=== PATIENT | female | born 1940 | race Caucasian/White ===

== ENCOUNTER 2024-05-20 11:59 | Emergency (ER) | payer OTHER ==
[2024-05-20 12:23] VITALS: PULSE 86; TEMP 98.5; O2SAT 95
--- NOTE | 2024-05-20 12:48 | ERPHSYRPT ---
- History of Present Illness Source: patient Exam Limitations: no limitations Patient Subjective Stated Complaint: cough for 2 weeks Triage Nursing Assessment: Pt brought to the ER by a friend, hypertensive, denies pain, pulses normal, skin n/c/d, no difficulty breathing, reports white thick sputum for 2 weeks, has been feeling dizzy but has not been taking in much liquids, lungs clear Physician History: Patient's had coughFor about 2 weeks. She has had on and off fever and chills and malaise. She is in no distress. She has a productive cough it has been white sputum. She says she thought it was the flu. She is also had some positional vertigo. It goes away with rest. She does not have any ataxia. She has no focal neurological deficits It gets worse with movement and she can find positions that make it go away. Her main issue is the cough. She is not dyspneic at rest but says she gets a little bit dyspneic well with exertion. She has no other complaints at this time. Allergies/Adverse Reactions: lisinopril Allergy (Verified 05/20/24 12:24) morphine Allergy (Verified 05/20/24 12:24) simvastatin Allergy (Verified 05/20/24 12:24) sulfamethoxazole [From Janra] Allergy (Verified 05/20/24 12:24) trimethoprim [From Janra] Allergy (Verified 05/20/24 12:24) Home Medications: Amlodipine Besylate 10 mg PO DAILY 05/20/24 [History] Aspirin 81 mg PO DAILY 05/20/24 [History] Atorvastatin Calcium 40 mg PO DAILY 05/20/24 [History] Hctz/Triamteren 37.5 mg/25 mg* [Maxzide-25MG Tablet] 0.5 tab PO DAILY 05/20/24 [History] Losartan Potassium 12.5 mg PO DAILY 05/20/24 [History] Metformin HCl 500 mg [Glucophage 500 MG] 500 mg PO DAILY 05/20/24 [Histor y] Metoprolol Tartrate 50 mg [Lopressor 50 MG] 50 mg PO BID 05/20/24 [History] Hx Influenza Vaccination/Date Given: No Hx Pneumococcal Vaccination/Date Given: No Travel Risk - International Travel Have you traveled outside of the country in past 3 weeks: No - Emerging Infectious Disease Are you exhibiting symptoms associated with any current EIDs: No - Review of Systems Constitutional: Chills, Fatigue, Malaise Eyes: No Symptoms Respiratory: Cough, No Stridor, No Wheezing Cardiac: No Symptoms, No Chest Pain, No Edema, No Palpitations, No Syncope Abdominal/Gastrointestinal: No Symptoms, Abdominal Pain Genitourinary Symptoms: No Symptoms Musculoskeletal: No Symptoms Skin: No Symptoms Neurological: No Symptoms All Other Systems: Reviewed and Negative - Past Medical History Pertinent Past Medical History: Yes Cardiac History: High Cholesterol, Hypertension, Other Endocrine Medical History: Diabetes Type II Other Medical History: artificial aorta artery - Past Surgical History Past Surgical History: Yes Cardiac: Other Gastrointestinal: Cholecystectomy Female Surgical History: Tubal Ligation Other Surgical History: 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, - Social History Smoking Status: Former smoker Exposure to second hand smoke: No Drug Use: none - Social Determinants of Health Will the patient participate in the screening: Yes Do you worry about a steady place to live?: No Do you have any problems with any of the following?: No known problems In the past 12 months,have you had to go without utilities?: No Transportation Issues: No Has anyone in your support network made you feel unsafe?: No Have you or anyone in your house had to go without enough: No - Nursing Vital Signs Nursing Vital Signs: Initial Vital Signs Temperature 98.5 F 05/20/24 12:09 Pulse Rate 86 05/20/24 12:09 Blood Pressure 149/68 05/20/24 12:09 O2 Sat by Pulse Oximetry 97 05/20/24 12:09 Pain Scale Pain Intensity 0 - Physical Exam General Appearance: no apparent distress Eye Exam: PERRL/EOMI Respiratory Exam: normal breath sounds, chest tenderness, other (Left lung is coarse. She is in no respiratory distress) Cardiovascular Exam: regular rate/rhythm, normal heart sounds Back Exam: normal inspection, normal range of motion Skin Exam: normal color, warm, dry SpO2: 95 - Course Nursing assessment & vital signs reviewed: Yes Ordered Tests: Active Orders 24 hr Category Date Time Status CHEST 1 VIEW (PORTABLE) Stat Exams 05/20/24 13:28 Taken BLOOD CULTURE Stat Lab 05/20/24 12:49 Received BNPII [NT PRO BNPII] Stat Lab 05/20/24 13:05 Completed CBC W DIFF Stat Lab 05/20/24 13:05 Completed CMP Stat Lab 05/20/24 13:05 Completed Medication Summary Generic Name Dose Route Start Last Admin Trade Name Chapo PRN Reason Stop Dose Admin Azithromycin 500 mg 05/20/24 14:25 Azithromycin 250 Mg Tablet PO 05/20/24 14:26 STAT ONE Lab/Rad Data: Laboratory Result Diagrams 05/20/24 13:05 05/20/24 13:05 Laboratory Results 05/20/24 05/20/24 05/20/24 Range/Units 13:05 13:05 13:05 WBC 9.0 (3.98-10.04) x10^3/uL RBC 4.08 (3.93-5.22) x10^6/uL Hgb 13.3 (11.2-15.7) g/dL Hct 39.7 (34.1-44.9) % MCV 97.3 H (79.4-94.8) fL MCH 32.6 H (25.6-32.2) pg MCHC 33.5 (32.2-35.5) g/dL RDW 13.6 (11.7-14.4) % Plt Count 185 (182-369) x10^3/uL MPV 10.8 (9.4-12.3) fL Gran % 73.8 H (34.0-71.1) % Immature Gran % (Auto) 0.3 (0.001-0.429) % Nucleat RBC Rel Count 0.0 (0.00-0.2) % Eos # (Auto) 0.11 (0.04-0.36) x10^3/uL Immature Gran # (Auto) 0.03 (0.001-0.031) x10^3u/L Absolute Lymphs (auto) 1.65 (1.18-3.74) x10^3/uL Absolute Monos (auto) 0.53 (0.24-0.86) x10^3/uL Absolute Nucleated RBC 0.00 (0.00-0.012) x10^3u/L Lymphocytes % 18.4 L (19.3-51.7) % Monocytes % 5.9 (4.7-12.5) % Eosinophils % 1.2 (0.7-5.8) % Basophils % 0.4 (0.1-1.2) % Absolute Granulocytes 6.63 H (1.56-6.13) x10^3/uL Basophils # 0.04 (0.01-0.08) x10^3/uL Sodium 137 (135-145) mmol/L Potassium 3.8 (3.5-5.1) mmol/L Chloride 104 (98-107) mmol/L Carbon Dioxide 25 (22-30) mmol/L Anion Gap 11.2 (5-15) MEQ/L BUN 14 (7-17) mg/dL Creatinine 0.71 (0.52-1.04) mg/dL Estimated GFR 83.8 ML/MIN Glucose 143 H (74-106) mg/dL Calcium 9.8 (8.4-10.2) mg/dL Total Bilirubin 1.00 (0.2-1.3) mg/dL AST 31 (14-36) U/L ALT 24 (0-35) U/L Alkaline Phosphatase 101 (38-126) U/L NT-Pro-B Natriuret Pep 890 (<300) pg/mL Serum Total Protein 6.3 (6.3-8.2) g/dL Albumin 3.8 (3.5-5.0) g/dL Influenza Type A Ag NEGATIVE (NEGATIVE) Influenza Type B Ag NEGATIVE (NEGATIVE) RSV (PCR) NEGATIVE (NEGATIVE) SARS-CoV-2 (PCR) NEGATIVE (NEGATIVE) - Progress Progress: improved Air Movement: good Progress Note: Patient was stable throughout stay. On the differential was COVID, flu, RSV, pneumonia, bronchitis,. Her labs looked good. All of her swabs were negative. Chest x-ray showed no acute findings. Because the symptoms have been going on for so long, go to go ahead and put her on a Zithromax Z-Bashir. 05/20/24 14:26 Medical Desision Making - Diagnostic Testing Diagnostic test were ordered, analyzed, and reviewed by me: Yes Radiological Interpretation: Interpreted by me - Risk of complications Minimal Risk: Minimal risk of morbidity - Departure Departure Disposition: Home Clinical Impression: Acute bronchitis Condition: Stable Critical Care Time: No Referrals: ASHWIN ALCOCER [Primary Care Provider] - Follow up/PCP as directed Instructions: Acute bronchitis in adults Prescriptions: Benzonatate 200 mg PO Q6-8HPRN PRN #30 cap PRN Reason: Cough Azithromycin 250 mg [Zithromax 250 MG TABLET] 250 mg PO QAM #4 tablet
[2024-05-20 13:08] VITALS: BP 134/68
[2024-05-20 13:20] LABS: Absolute Neutrophil Ct (ANC) 6.63 x10^3/uL (1.56-6.13); BASOPHIL % 0.4 % (0.1-1.2); Basophil (Absolute #) 0.04 x10^3/uL (0.01-0.08); Eosinophil % 1.2 % (0.7-5.8); Eosinophil (Absolute #) 0.11 x10^3/uL (0.04-0.36); Hematocrit 39.7 % (34.1-44.9); Hemoglobin 13.3 g/dL (11.2-15.7); IMMATURE GRAN # 0.03 x10^3u/L (0.001-0.031); IMMATURE GRAN % 0.3 % (0.001-0.429); Lymphocyte (Absolute #) 1.65 x10^3/uL (1.18-3.74); Lymphocytes % 18.4 % (19.3-51.7); Mean Cell Volume 97.3 fL (79.4-94.8); Mean Corpuscular Hemoglobin 32.6 pg (25.6-32.2); Mean Corpuscular Hgb Concent. 33.5 g/dL (32.2-35.5); Mean Platelet Volume 10.8 fL (9.4-12.3); Monocyte (Absolute #) 0.53 x10^3/uL (0.24-0.86); Monocytes % 5.9 % (4.7-12.5); Neutrophil % 73.8 % (34.0-71.1); Platelet Count 185 x10^3/uL (182-369); Red Blood Count 4.08 x10^6/uL (3.93-5.22); Red Cell Distribution Width 13.6 % (11.7-14.4)
[2024-05-20 13:43] LABS: ALBUMIN 3.8 g/dL (3.5-5.0); ANION GAP 11.2 MEQ/L (5-15); Calcium 9.8 mg/dL (8.4-10.2); Creatinine 1 0.71 mg/dL (0.52-1.04); EST GLOMERULAR FILTRATION RATE 83.8 ML/MIN; Potassium 3.8 mmol/L (3.5-5.1); Total Protein 6.3 g/dL (6.3-8.2)
[2024-05-20 13:56] LABS: INFLUENZA A NEGATIVE (NEGATIVE); INFLUENZA B NEGATIVE (NEGATIVE); RESPIRATORY SYNCTIAL VIRUS NEGATIVE (NEGATIVE); SARS-CoV-2 Xpert Express NEGATIVE (NEGATIVE)
[2024-05-20] MEDS ORDERED: Zithromax 250 MG TABLET ONE (14:34)
[2024-05-20] MEDS: Zithromax 250 MG TABLET PO ONE (14:34)
[2024-05-20] MEDS: Lasix 40 MG/4 ML IV ONE (14:53)
[2024-05-20] MEDS: Lasix 40 MG PO ONE (15:09)
--- NOTE | 2024-05-20 19:51 | XRAY ---
Indication: Cough. Comparison: June 07, 2011 Portable apical lordotic chest again hyperinflated with new blunting both costophrenic angles favoring tiny pleural effusions/thickening. Upper lungs clear. 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 Bony thorax intact with osteopenia and mild degenerative changes.
== END 2024-05-20 15:16 | disposition home or self-care (01) ==
LOC: ED 11:59
DX: J20.9 Acute bronchitis, unspecified (principal); R05.9 Cough, unspecified; R42 Dizziness and giddiness
CPT/HCPCS: 0241U; 36415; 71045; 80053; 83880; 85025; 87040; 99284; 99283; A9270-GY